=== PATIENT | female | born 1935 ===

== ENCOUNTER → 2021-05-23 | Day surgery (SDC) | payer MEDICARE ==
[~2021-05-23] VITALS: Ht 157.5 cm; Wt 68.9 kg
[~2021-05-23] MED LIST: ACETAMINOPHEN500 M1 PO; ANORO ELLIPTA1 EACH INH; ASPIRIN EC81 MG PO; CALTRATE 600+D1 EAC2 PO; CLARITIN10 MG PO; COD LIVER OIL1 EACH PO; CULTURELLE1 EACH PO; EZETIMIBE10 MG PO; FEOSOL325 MG PO; FLAXSEED OIL1000 M1 PO; MAGNESIUM250 M1 PO; NORVASC5 MG PO; SINGULAIR10 MG PO; VENTOLIN HFA IN18 GM INH
[2021-05-23 10:55] LABS: ALBUMIN 3.8 g/dL (3.4-5.0); BILIRUBIN - TOTAL 0.4 mg/dL (0.2-1.0); BUN/CREAT RATIO (CALC) 18.6 RATIO; CREATININE 0.97 mg/dL (0.51-0.95); GLOBULIN (CALCULATION) 3.6 g/dL; TOTAL PROTEIN 7.4 g/dL (6.4-8.2)
[2021-05-23 11:16] LABS: HCT 38.1 % (37.0-47.0); HGB 12.3 g/dl (12.5-16.0); MCH 28.1 pg (25.0-31.0); MCHC 32.3 g/dL (32.0-36.0); MPV 11.6 fL (6.0-9.5); RBC 4.38 M/uL (4.20-5.40); RDW 15.4 % (11.5-14.0); WBC 6.4 K/uL (4.0-10.5)
== END | disposition home or self-care (01) ==
LOC: FAS 09:31
PROVIDERS: Surgery
DX: K92.1 Melena (principal); K22.2 Esophageal obstruction; K21.9 Gastro-esophageal reflux disease without esophagitis; K29.60 Other gastritis without bleeding; K63.89 Other specified diseases of intestine; K58.9 Irritable bowel syndrome, unspecified; Z85.038 Personal history of other malignant neoplasm of large intestine; Z88.2 Allergy status to sulfonamides; Z88.8 Allergy status to other drugs, medicaments and biological substances; Z79.82 Long term (current) use of aspirin
CPT/HCPCS: 36415; 80053; C1726; J0690; J1610; J2250; J2704; J7120

== ENCOUNTER → 2021-07-12 | Day surgery (SDC) | payer MEDICARE, OTHER ==
[~2021-07-12] VITALS: Ht 157.5 cm; Wt 68.9 kg
[2021-07-12 09:13] LABS: HCT 39.5 % (37.0-47.0); HGB 12.9 g/dl (12.5-16.0); MCH 28.5 pg (25.0-31.0); MCHC 32.7 g/dL (32.0-36.0); MCV 87.2 fL (78.0-100.0); MPV 10.8 fL (6.0-9.5); RBC 4.53 M/uL (4.20-5.40); RDW 14.8 % (11.5-14.0)
[2021-07-12 09:34] LABS: BUN/CREAT RATIO (CALC) 15.6 RATIO; CREATININE 0.96 mg/dL (0.51-0.95); POTASSIUM 4.2 mmol/L (3.5-5.1)
== END | disposition home or self-care (01) ==
LOC: FAS 08:22
PROVIDERS: Surgery
DX: R19.5 Other fecal abnormalities (principal); I10 Essential (primary) hypertension; E78.5 Hyperlipidemia, unspecified; J44.9 Chronic obstructive pulmonary disease, unspecified; Z85.038 Personal history of other malignant neoplasm of large intestine; Z88.2 Allergy status to sulfonamides; Z88.8 Allergy status to other drugs, medicaments and biological substances
CPT/HCPCS: 36415; 80048; C1726; J1610; J2704; J7120